=== PATIENT | female | born 1995 | race Caucasian/White ===

== ENCOUNTER 2018-08-14 11:44 | Emergency (ER) | payer OTHER ==
[2018-08-14 11:53] VITALS: BP 115/80; TEMP 99.6; BMI 39.6
--- NOTE | 2018-08-14 12:11 | ED.PDOC ---
General ED Provider: Dr. ELMIRA PEGUERO Chief Complaint: Respiratory Complaint Stated Complaint: Sore throat; Cough congestion. Chest rattling. Cough non productive Time Seen by Physician: 11:50 Mode of Arrival: Walk-In Information Source: Patient Exam Limitations: No limitations Primary Care Provider: MORGAN VASQUEZ Nursing and Triage Documentation Reviewed and Agree: Yes Does patient meet sepsis criteria?: No System Inflammatory Response Syndrome: Not Applicable Sepsis Protocol: For patient's 13 years and over: Temp is 96.8 and below OR 101 and greater Pulse >90 BPM Resp >20/minute Acutely Altered Mental Status Are patient's symptoms suggestive of a new infection, such as: -Pneumonia -Skin, Soft Tissue -Endocarditis -UTI -Bone, Joint Infection -Implantable Device -Acute Abdominal Infection -Wound Infection -Meningitis -Blood Stream Catheter Infection -Unknown Respiratory Complaint Exam - Respiratory Complaint/Exam Onset/Duration: 2 days Symptoms Are: Still present Timing: Constant Initial Severity: Mild Current Severity: Mild Location: Throat, Chest Character: Reports: Bronchospastic cough Aggravating: Reports: Passive smoke exposure (plus active smoker) Alleviating: Reports: None Associated Signs and Symptoms: Reports: Wheezing, Nasal congestion, Sore throat Pulmonary Embolism Risk Factors: None Cardiac Risk Factors: Reports: None Pseudomonas Risk Factors: Reports: None Tuberculosis Risk Factors: Reports: None Status Asthmaticus Risk Factors: Reports: None Home Oxygen Use: No Recent Stress Test: No Recent Echo/LV Function: No JVD Present: No Accessory Muscle Use: No Retractions: Not Present Diminished Breath Sounds: Yes Sinus Tenderness: None Grunting Respirations: No Kussmaul Respirations: No Differential Diagnoses: Bronchiolitis, Bronchospasm, URI, Other (strep throat) Review of Systems - Review Of Systems Constitutional: Reports: No symptoms Eyes: Reports: No symptoms Ears, Nose, Mouth, Throat: Reports: No symptoms, Throat pain Respiratory: Reports: Cough Cardiac: Reports: No symptoms GI: Reports: No symptoms : Reports: No symptoms Musculoskeletal: Reports: No symptoms Skin: Reports: No symptoms Neurological: Reports: No symptoms Endocrine: Reports: No symptoms Hematologic/Lymphatic: Reports: No symptoms All Other Systems: Reviewed and Negative Past Medical History - Past Medical History Previously Healthy: Yes Endocrine: Reports: None Cardiovascular: Reports: None Respiratory: Reports: None Hematological: Reports: None Gastrointestinal: Reports: None Genitourinary: Reports: None Neuro/Psych: Reports: Unknown Musculoskeletal: Reports: None Cancer: Reports: None Last Menstrual Period: - Surgical History General Surgical History: Reports: None - Family History Family History: Reports: None - Social History Smoking Status: Current every day smoker Hx Substance Use: No Alcohol Screening: Occasionally Physical Exam - Physical Exam Appearance: Well-appearing, No pain distress, Well-nourished Eyes: ARDEN, EOMI, Conjunctiva clear ENT: Ears normal, Nose normal, Oropharynx normal Neck: Supple Respiratory: Airway patent, Breath sounds clear, Breath sounds equal, Respirations nonlabored Cardiovascular: RRR, Pulses normal, No rub, No murmur GI/: Soft, Nontender, No masses, Bowel sounds normal, No Organomegaly Musculoskeletal: Normal strength, ROM intact, No edema, No calf tenderness Skin: Warm, Dry, Normal color Neurological: Sensation intact, Motor intact, Reflexes intact, Cranial nerves intact, Alert, Oriented Psychiatric: Affect appropriate, Mood appropriate Interpretation - Radiology Interpretation Radiology Interpretation By: Radiologist Radiology Results: No acute changes Exam Interpreted: CXR Critical Care Note - Critical Care Note Total Time (mins): 0 Course - Course Hematology/Chemistry: 08/14/18 12:25 Orders, Labs, Meds: Lab Review 08/14/18 08/14/18 08/14/18 12:25 12:25 12:25 Sodium 141.4 Potassium 3.87 Chloride 103.0 Carbon Dioxide 28.1 Anion Gap 14.17 BUN 7.1 Creatinine 0.71 Estimated GFR (MDRD) 103.00 BUN/Creatinine Ratio 10.00 Glucose 90.7 Calcium 9.09 Total Bilirubin 0.21 AST 24.8 ALT 19.4 Alkaline Phosphatase 91.7 Total Protein 7.87 Albumin 4.24 Globulin 3.63 Albumin/Globulin Ratio 1.16 Serum , Qual Negative Urine Test Negative Influ A Molecular Assay Influ B Molecular Assay RSV Antigen 08/14/18 08/14/18 12:30 12:30 Sodium Potassium Chloride Carbon Dioxide Anion Gap BUN Creatinine Estimated GFR (MDRD) BUN/Creatinine Ratio Glucose Calcium Total Bilirubin AST ALT Alkaline Phosphatase Total Protein Albumin Globulin Albumin/Globulin Ratio Serum , Qual Urine Test Influ A Molecular Assay Negative by naat Influ B Molecular Assay Negative by naat RSV Antigen Negative by naat Orders Category Date Time Status NEBULIZER TREATMENT Stat CARDIO 08/14/18 12:15 Completed CMP [COMPREHENSIVE METABOLIC PANEL] Stat LAB 08/14/18 12:25 Completed FLU A & B MOLECULAR [FLU A/B MOLECULAR] Stat LAB 08/14/18 12:30 Completed HCG QUALITATIVE [SERUM ] Stat LAB 08/14/18 12:25 Completed RSV Stat LAB 08/14/18 12:30 Completed URINE Stat LAB 08/14/18 12:25 Completed Albuterol Sulfate 0.083% Neb [Albuterol 0.083% Neb] MEDS 08/14/18 12:14 Discontinued 1 vial NEB ONCE STA CHEST, 2 VIEWS PA & LAT Stat RADS 08/14/18 12:14 Completed Medications Discontinued Medications Generic Name Dose Route Start Last Admin Trade Name Freq PRN Reason Stop Dose Admin Albuterol Sulfate 1 vial 08/14/18 12:14 08/14/18 12:29 Albuterol 0.083% Neb NEB 08/14/18 12:15 1 vial ONCE STA Administration Vital Signs: Temp Pulse Resp BP Pulse Ox 08/14/18 11:47 99.6 F 108 H 16 115/80 96 Departure - Departure Time of Disposition: 13:15 Disposition: HOME SELF-CARE Discharge Problem: URI (upper respiratory infection) Instructions: Upper Respiratory Infection (ED) Condition: Good Pt referred to PMD for follow-up: Yes IPMP verified?: No Additional Instructions: Remain on antibiotics Take RObitussin for coughing and congestion Follow up PCP Allergies/Adverse Reactions: Allergies codeine Adverse Reaction (Verified 08/14/18 11:45) Home Medications: Ambulatory Orders Amoxicillin 500 mg PO BID 08/14/18 Escitalopram Oxalate [Lexapro] 10 mg PO DAILY 08/14/18 Folic Acid 0.4 mg PO DAILY 08/14/18 Disposition Discussed With: Patient
[2018-08-14] MEDS ORDERED: ALBUTEROL 0.083% NEB NEB STA (12:14)
[2018-08-14 12:37] LABS: URINE PREGNANCY TEST NEGATIVE (NEGATIVE)
--- NOTE | 2018-08-14 13:00 | DI ---
Exam: Two views of the chest. Comparison: 04/12/2014. Reason for exam: Cough and congestion. FINDINGS: No pneumothorax, pleural effusion, or focal consolidation. The cardiac silhouette is not enlarged. The imaged osseous structures appear grossly unremarkable without acute fracture. Similar appearing partially calcified nodule in the left upper lobe. Impression: No acute cardiopulmonary process.
== END 2018-08-14 13:45 | disposition home or self-care (01) ==
LOC: ED 11:44
DX: J06.9 Acute upper respiratory infection, unspecified (principal); F17.210 Nicotine dependence, cigarettes, uncomplicated
CPT/HCPCS: 36415; 80053; 81025; 84703; 87502; 87801; 94640; 99283